=== PATIENT | male | born 1995 | race Caucasian/White ===

== ENCOUNTER 2021-08-24 20:11 | Inpatient (IN) | payer MEDICAID, SELFPAY ==
[2021-08-24 20:14] VITALS: PULSE 116; RESP 18; TEMP 36.7; O2SAT 98; BMI 39.0
--- NOTE | 2021-08-24 20:18 | CTR_ITS ---
PROCEDURE INFORMATION: Exam: CT Head Without Contrast Exam date and time: 08/24/2021 8:18 PM Age: 26 years old Clinical indication: Prior surgery; Surgery date: 1-6 months; Surgery type: Life Skills Consultant shunt; Patient HX: HX of sarcoidosis C/O weakness TECHNIQUE: Imaging protocol: Computed tomography of the head without contrast. Radiation optimization: All CT scans at this facility use at least one of these dose optimization techniques: automated exposure control; mA and/or kV adjustment per patient size (includes targeted exams where dose is matched to clinical indication); or iterative reconstruction. COMPARISON: No relevant prior studies available. RADIATION DOSE METRICS: Total DLP (mGy-cm): 1069.07 FINDINGS: Tubes, catheters and devices: Left frontal DEPUTY COURT shunt catheter tip over the anterior horn left lateral ventricle. 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 Cerebral ventricles: No ventriculomegaly. Paranasal sinuses: Severe left maxillary sinus disease. Mild bilateral ethmoid sinus disease. Mastoid air cells: Visualized mastoid air cells are well aerated. Bones/joints: Lytic bone destruction in the midline anterior frontal sinuses with extension to the superior portion of the nasal bones suggesting possible bony sarcoidosis. Soft tissues: Unremarkable. CT/CT head wo con* [id number] IMPRESSION: 1. Left frontal DEPUTY COURT shunt catheter tip over the anterior horn left lateral ventricle. 2. Severe left maxillary sinus disease. 3. Mild bilateral ethmoid sinus disease. 4. Lytic bone destruction in the midline anterior frontal sinuses with extension to the superior portion of the nasal bones suggesting possible bony sarcoidosis. Radiation Dose CTDIVOL = (mGy): DLP = 1069.07 (mGy-cm)
--- NOTE | 2021-08-24 20:18 | XRR_ITS ---
PROCEDURE INFORMATION: Exam: XR Chest Exam date and time: 08/24/2021 8:18 PM Age: 26 years old Clinical indication: Other: Edema; Additional info: Swelling TECHNIQUE: Imaging protocol: XR of the chest. Views: 1 view. COMPARISON: No relevant prior studies available. FINDINGS: Lungs: Unremarkable. No consolidation. Pleural spaces: Unremarkable. No pleural effusion. No pneumothorax. Heart/Mediastinum: Unremarkable. No cardiomegaly. Bones/joints: Unremarkable. XR/XR chest 1V portable [id number] IMPRESSION: No acute findings. Radiation Dose CTDIVOL = (mGy): DLP = (mGy-cm)
--- NOTE | 2021-08-24 20:19 | ECG_ITS ---
[facility] Test Date: 2021-08-24 Pat Name: Rick York Department: Room: Gender: Male Community Services Coordinator: : 1995 Requested By: Ivone De La Rosa Order Number: [id number] Domonique MD: Toshia Haywood M.D. Measurements Intervals [place] Rate: 111 P: 47 CT: 155 QRS: 57 QRSD: 91 T: 4 QT: 327 QTc: 446 Interpretive Statements SINUS TACHYCARDIA NONSPECIFIC T-WAVE ABNORMALITY ABNORMAL RHYTHM ECG No previous ECG available for comparison Electronically Signed On 08-25-2021 20:00:36 PRODUCT DEVELOPER by Toshia Haywood M.D. [id number]
--- NOTE | 2021-08-24 20:46 | W.ED.WEAKNES ---
HPI - Weakness General: Chief complaint: Weakness Stated complaint: WEAKNESS Time Seen by Provider: 08/24/21 20:14 Source: patient and EMS Mode of arrival: EMS Limitations: no limitations History of Present Illness: HPI Narrative: 26-year-old female who presents here with increased weakness. He has a history of [place] cirrhosis along with hydrocephaly patient was recently admitted to [facility] a month ago and had a SLURRY CONTROL TENDER shunt placed for his hydrocephalus. Per patient he has had increasing weakness since then and swelling in his legs also spoke to patient's grandmother over the phone who is unable to come here due to distance as he came from [place] and she states she does not have a car. She states that since he has been discharged from [facility] she has had increased weakness with very limited mobility and has not been able to walk over the last week and states that her or his mother cannot take care of him any longer. He has had no fever no headache no increased confusion. He does have an abscess to his right upper arm Associated symptoms: Denies chest pain, chills, dysuria, easy bruising, fever(s), nausea or vomiting Review of Systems Const: Denies: fever(s), chills, body aches or change in appetite Eyes: Denies: blurry vision or eye discomfort ENMT: Denies: throat pain or dental pain Card: Denies: chest pain Resp: Denies: dyspnea GI: Denies: abdominal pain, nausea, vomiting or diarrhea : Denies: dysuria Musc: Reports: extremity swelling Skin/Breast: Denies: rash Neuro: Reports: weakness in extremities Psych: Denies: depression Po/Lymph: Denies: easy bruising All/Imm: Denies: urticaria Physical Exam Const: COMMON NORMALS: no acute distress, patient oriented x3 and healthy appearing HENMT: COMMON NORMALS: normocephalic and atraumatic HEAD & SCALP: normocephalic and atraumatic Eye: COMMON NORMALS: Equal, round and reactive pupils present and EOMs intact bilaterally PUPIL: Yes Equal, round and reactive pupils present Neck/C-Spine: COMMON NORMALS: full ROM and supple Chest: COMMONS NORMALS: normal inspection of the chest and normal palpation of entire chest wall Resp: COMMON NORMALS: normal respiratory effort, No retractions, No use of accessory muscles and clear to auscultation bilaterally AUSCULTATION: clear to auscultation bilaterally Cardio: COMMON NORMALS: regular rate, regular rhythm and No murmurs present (Cardio) RATE: regular rate RHYTHM: regular rhythm GI: COMMON NORMALS: Normal to inspection, nondistended, normoactive bowel sounds present, Soft to palpation, non-tender and no masses PALPATION: Yes Soft to palpation Extremity: NARRATIVE EXTREMITY EXAM: 3+ edema in bilateral extremities patient is very weak in bilateral extremities as well. 3 cm abscess to right upper arm Neuro: COMMON NORMALS: patient oriented x3, moves all extremities and no focal motor deficits Psych: COMMON NORMALS: mental status grossly normal, Normal thought process present and cooperative THOUGHT PROCESS: Normal thought process present Skin: COMMON NORMALS: no rashes or lesions noted and no wounds GENERAL SKIN EXAM: no rashes or lesions noted Procedures Abscess I/D Site: upper extremity Side (if applicable): right Local Anesthetic: lidocaine 1% Amount of anesthesia used (mL): 10 Technique: incised with #11 blade Irrigation: No Packing used?: none Course Vital Signs: Vital signs: Vital Signs Temperature 98.1 F 08/24/21 20:14 Pulse Rate 113 H 08/24/21 22:35 Respiratory Rate 16 08/24/21 22:35 Blood Pressure 152/93 08/24/21 22:35 Pulse Oximetry 99 08/24/21 22:35 MDM - Weakness MDM Narrative: Medical decision making narrative: Patient presents here with generalized weakness and inability to walk. I spoke to patient's grandma she states since he is got out of the hospital had surgery she has had difficulty walking and not able to walk over the last 3 days they state that they are not able to take care of him at home anymore and believes patient may need home health or fdc. Mother and grandmother both within [place] and are unable to come here due to not having a car I am unable to get patient to ambulate he does have leg swelling here CT of his head is normal he has no signs of BP shunt malfunction patient's blood work is normal as well. I spoke to the hospitalist will admit at this time for his weakness and unable to walk. Lab Data: Labs: Lab Results 08/24/21 08/24/21 08/24/21 21:07 21:12 21:12 WBC 8.3 10^3/uL 10^3/ uL (4.0-10.0) RBC 5.46 10^6/uL H 10 ^6/uL (4.1-5.3) Hgb 14.5 g/dL g/dL (11.7-16.6) Hct 44.2 % % (42.0-52.0) MCV 81.0 fl fl (80-94) MCH 26.6 pg L pg (28.0-34.0) MCHC 32.8 g/dL g/dL (30.0-36.0) RDW 18.4 % H % (12.1-15.1) Plt Count 95 10^3/cmm L 10^ 3/cmm (130-400) MPV 11.2 fL H fL (7.4-10.4) Neut % (Auto) 73.9 % % Lymph % (Auto) 16.0 % % [place] % (Auto) 8.0 % % Eos % (Auto) 0.4 % % Baso % (Auto) 0.5 % % Neut # (Auto) 6.13 10^3/uL 10^3 /uL (1.8-7.7) Lymph # (Auto) 1.3 10^3/uL 10^3/ uL (0.8-4.8) [place] # (Auto) 0.7 10^3/uL 10^3/ uL (0.2-0.9) Eos # (Auto) 0.0 10^3/uL 10^3/ uL (0.0-0.8) Baso # (Auto) 0.0 10^3/uL 10^3/ uL (0.0-0.1) Nucleated RBC % (a uto) 0 % % Nucleated RBCs # 0.0 /100WBC /100W BC PT 16.10 SECONDS H S ECONDS (12.1-14.9) INR 1.25 H (0.8-1.2) Sodium Potassium Chloride Carbon Dioxide Anion Gap BUN Creatinine GFR Calculation Glucose POC Glucose 229 mg/dL H mg/dL (70-110) Calculated Osmolal ity Calcium Total Bilirubin AST ALT Alkaline Phosphata se NT-Pro-B Natriuret Pep Total Protein Albumin Globulin 08/24/21 21:12 WBC RBC Hgb Hct MCV MCH MCHC RDW Plt Count MPV Neut % (Auto) Lymph % (Auto) [place] % (Auto) Eos % (Auto) Baso % (Auto) Neut # (Auto) Lymph # (Auto) [place]eld # (Auto) Eos # (Auto) Baso # (Auto) Nucleated RBC % (a uto) Nucleated RBCs # PT INR Sodium 140 mmol/L mmol/L (136-145) Potassium 3.1 mmol/L L mmol /L (3.5-5.1) Chloride 100 mmol/L mmol/L (98-107) Carbon Dioxide 27 mmol/L mmol/L (22-29) Anion Gap 16.1 (5-19) BUN 5 mg/dL L mg/dL (6-20) Creatinine 0.5 mg/dL L mg/dL (0.7-1.2) GFR Calculation 201.0 mL/min H mL /min (90-130) Glucose 257 mg/dL H mg/dL (65-115) POC Glucose Calculated Osmolal ity 296 mOsm/kg H mOs m/kg (285-295) Calcium 9.8 mg/dL mg/dL (8.5-10.5) Total Bilirubin 2.3 mg/dL H mg/dL (0.15-1.2) AST 30 U/L U/L (0-40) ALT 176 U/L H U/L (0-41) Alkaline Phosphata se 169 IU/L H IU/L (40-130) NT-Pro-B Natriuret Pep 64 pg/mL pg/mL (0-125) Total Protein 5.7 g/dL L g/dL (6.6-8.7) Albumin 3.8 g/dL g/dL (3.5-5.2) Globulin 1.9 g/dL g/dL (1.3-4.6) Imaging Data^: CT Head: Attestation: I personally reviewed and interpreted this imaging study as follows: Radiologist's impression: ADM Date: 08/24/21 Loc: ER Room/Bed: Attending Dr: Ordering Provider/Ordering MD: Ivone De La Rosa MD Date of Service: 08/24/21 Procedure(s): CT head wo con* [id number] Accession Number(s): [id number] Report Number: [id number] PROCEDURE INFORMATION: Exam: CT Head Without Contrast Exam date and time: 08/24/2021 8:18 PM Age: 26 years old Clinical indication: Prior surgery; Surgery date: 1-6 months; Surgery type: Shank Piece Tacker shunt; Patient HX: HX of sarcoidosis C/O weakness TECHNIQUE: Imaging protocol: Computed tomography of the head without contrast. Radiation optimization: All CT scans at this facility use at least one of these dose optimization techniques: automated exposure control; mA and/or kV adjustment per patient size (includes targeted exams where dose is matched to clinical indication); or iterative reconstruction. COMPARISON: No relevant prior studies available. RADIATION DOSE METRICS: Total DLP (mGy-cm): 1069.07 FINDINGS: Tubes, catheters and devices: Left frontal SLURRY CONTROL TENDER shunt catheter tip over the anterior horn left lateral ventricle. 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 Cerebral ventricles: No ventriculomegaly. Paranasal sinuses: Severe left maxillary sinus disease. Mild bilateral ethmoid sinus disease. Mastoid air cells: Visualized mastoid air cells are well aerated. Bones/joints: Lytic bone destruction in the midline anterior frontal sinuses with extension to the superior portion of the nasal bones suggesting possible bony sarcoidosis. Soft tissues: Unremarkable. CT/CT head wo con* [id number] IMPRESSION: 1. Left frontal SLURRY CONTROL TENDER shunt catheter tip over the anterior horn left lateral ventricle. 2. Severe left maxillary sinus disease. 3. Mild bilateral ethmoid sinus disease. 4. Lytic bone destruction in the midline anterior frontal sinuses with extension to the superior portion of the nasal bones suggesting possible bony sarcoidosis. Radiation Dose CTDIVOL = (mGy): DLP = 1069.07 (mGy-cm) Dictated By: Trae Bergman MD Signed By: Trae Bergman MD Signed Date/Time: 08/24/212203 CXR: Attestation: I personally reviewed and interpreted this imaging study as follows: My impression: no acute abnormality EKG Data^: EKG 1: Attestation: I personally reviewed and interpreted this EKG as follows: EKG interpretation date: 08/24/21 EKG interpretation time: 20:34 Interpretation: sinus tach hr [address] or t wave abnormalities qrs 91 qtc 393 Discharge Plan Discharge Patient Disposition: Admitted As Inpatient Admit Provider: Radha Machuca Clinical Impression: Weakness, Edema of both lower legs, Liver cirrhosis secondary to [place], S/P SLURRY CONTROL TENDER shunt, Abscess Condition: Stable Coding Level of Care Code ED Can Operator for Chg Fwd Exam Comprehensive
[2021-08-24 21:09] LABS: Glucose Point of Care 229 mg/dL (70-110)
[2021-08-24 21:22] VITALS: BP 149/88
[2021-08-24 21:24] LABS: Basophils % 0.5 %; Eosinophils % 0.4 %; Hematocrit 44.2 % (42.0-52.0); Hemoglobin 14.5 g/dL (11.7-16.6); Lymphocytes # 1.3 10^3/uL (0.8-4.8); Mean Corpuscular HGB Conc 32.8 g/dL (30.0-36.0); Mean Corpuscular Hemoglobin 26.6 pg (28.0-34.0); Mean Platelet Volume 11.2 fL (7.4-10.4); Monocytes # 0.7 10^3/uL (0.2-0.9); Neutrophils # 6.13 10^3/uL (1.8-7.7); Neutrophils % 73.9 %; Nucleated Red Blood Cells % 0 %; Platelet Count 95 10^3/cmm (130-400); Red Blood Count 5.46 10^6/uL (4.1-5.3); Red Cell Distribution Width 18.4 % (12.1-15.1); White Blood Count 8.3 10^3/uL (4.0-10.0)
[2021-08-24 21:30] LABS: INR 1.25 (0.8-1.2)
[2021-08-24 21:49] LABS: Alanine Aminotransferase 176 U/L (0-41); Albumin Level 3.8 g/dL (3.5-5.2); Alkaline Phosphatase 169 IU/L (40-130); Anion Gap 16.1 (5-19); Aspartate Amino Transferase 30 U/L (0-40); Blood Urea Nitrogen 5 mg/dL (6-20); Calcium 9.8 mg/dL (8.5-10.5); Carbon Dioxide 27 mmol/L (22-29); Chloride 100 mmol/L (98-107); Globulin 1.9 g/dL (1.3-4.6); Glucose 257 mg/dL (65-115); NT Pro B Type Natriuretic Pept 64 pg/mL (0-125); Osmolality Calculated 296 mOsm/kg (285-295); Potassium 3.1 mmol/L (3.5-5.1); Slide Review Slide Review Perform; Sodium 140 mmol/L (136-145); Total Bilirubin 2.3 mg/dL (0.15-1.2); Total Protein 5.7 g/dL (6.6-8.7)
--- NOTE | 2021-08-24 22:04 | USR_ITS ---
PROCEDURE INFORMATION: Exam: US Duplex Lower Extremity Veins, Bilateral Exam date and time: 08/24/2021 10:04 PM Age: 26 years old Clinical indication: Edema, localized; Lower extremity, bilateral; Additional info: Leg swelling TECHNIQUE: Imaging protocol: Real-time duplex ultrasound of the extremities with 2-D wiggins scale, color Doppler flow and spectral waveform analysis with image documentation. Complete exam focused on the bilateral lower extremity veins. COMPARISON: No relevant prior studies available. FINDINGS: Right deep veins: Unremarkable. The common femoral, femoral, proximal profunda femoral and popliteal veins are patent without thrombus. Normal Doppler waveforms. Normal compressibility and/or augmentation response. Right superficial veins: Saphenofemoral junction is patent without thrombus. Left deep veins: Unremarkable. The common femoral, femoral, proximal profunda femoral and popliteal veins are patent without thrombus. Normal Doppler waveforms. Normal compressibility and/or augmentation response. Left superficial veins: Saphenofemoral junction is patent without thrombus. Soft tissues: Unremarkable. US/CV venous duplex [facility] [id number] IMPRESSION: No evidence of deep vein thrombosis. Radiation Dose CTDIVOL = (mGy): DLP = (mGy-cm)
[2021-08-24 22:12] VITALS: BP 147/89; PULSE 113; RESP 20; O2SAT 97
[2021-08-24 22:35] VITALS: BP 152/93; PULSE 113; RESP 16; O2SAT 99
[2021-08-24] MEDS: FUROsemide 10 mg/mL SDV 4mL 40 MG IVP (22:48)
[2021-08-24] MEDS: lidocaine 1% INJ 20 mL INJECTION (22:50)
[2021-08-24] MEDS: clindamycin 900 MG/50 ML PREMIX 100 MG IV (22:53)
[2021-08-24 23:14] LABS: Ammonia 19 umol/L (16-60)
[2021-08-24 23:30] VITALS: BMI 37.9; BMI 39.0
[2021-08-24 23:46] VITALS: BP 118/94; PULSE 119; RESP 17; O2SAT 100
--- NOTE | 2021-08-25 00:14 | PM.HP ---
Providers/Chief Complaint Admitting Physician: Radha Machuca MD Chief Complaint: WEAKNESS History of Present Illness Rick York is a 26 year old male with PMH sarcoidosis, DM, hydrocephalus for which BRAKE DRUM LATHE OPERATOR shunt was placed at [facility] approximately 2 months ago. Patient is a vague historian and non specific, not very forthcoming regarding details of his admission including why he needed admission ,symptoms at admission and those leading up to his diagnosis of sarcoidosis. He was discharged home approximately one month ago. He has had LE swelling B/L dating back several months, however this has worsened since he returned home to the point where his legs feel too heavy to be able to walk. He was ambulating until a week ago but now states that he is unable to do so because of heaviness. No disturbances in sensation in lower extremities, aware of bowel and bladder function but does not appear to make effort to reposition when urinating. weeping edema+, few scratches and superficial ulcers noted over B/L legs, denies any preceeding injuries. B/L elbows with contusions and abrasions, states he got them when he punched himself being frustrated during a video game. Denies any recent fever, chills, cough, dyspnea, chest pain, palpitations, nausea, vomiting, diarrhea, dysuria. Head CT with patent BRAKE DRUM LATHE OPERATOR shunt. B/L groin and buttocks with intertrigo, patient denies itching, appears to have been unaware. States he does not follow with PCP or divinity teacher Review of Systems General: Reports: 10 or more systems reviewed and unremarkable except in HPI and below Const: Denies: fever(s), chills or body aches Eyes: Denies: change in vision, blurry vision or photophobia ENMT: Reports: hoarseness; Denies: throat pain, enlarged tonsils, odynophagia or nasal congestion Card: Denies: chest pain, palpitations, irregular heart rhythm, edema, swelling of feet/ankles, lightheadedness, pre-syncope, dyspnea on exertion or orthopnea Resp: Denies: dyspnea, productive cough, non-productive cough, wheezing, stridor, pain on inspiration, change in phlegm color, hemoptysis or chest congestion GI: Denies: abdominal pain, nausea, vomiting, hematemesis, coffee ground emesis, dysphagia, heartburn, diarrhea, constipation, GI cramping, change in stool character, hematochezia or melena : Denies: flank pain, dysuria, urinary frequency, urinary urgency, urinary hesitancy or hematuria Musc: Denies: neck pain, back pain, extremity pain, joint swelling, joint warmth or deformity Neuro: Denies: headache(s), numbness in extremities, weakness in extremities, sensory changes, difficulty walking, frequent falls, dizziness, vertigo, behavioral changes, Slurred speech present or seizure-like activity Psych: Denies: anxiety, depression, suicidal ideation or homicidal ideation Endo: Denies: polyuria, polydipsia, tired all the time, cold intolerance or hot flashes Po/Lymph: Denies: easy bruising or easy bleeding Medications/Allergies Home Medications Medication Instructions Recorded Confirmed Last Taken Type ergocalciferol (vitamin D2) 50,000 unit PO DIRECTED 08/24/21 08/24/21 Unknown History [Vitamin D2] famotidine 20 mg PO DAILY 08/24/21 08/24/21 Unknown History metformin 500 mg PO BID 08/24/21 08/24/21 Unknown History miconazole nitrate [Zeasorb AF] 1 applic TOPICAL BID 08/24/21 08/24/21 Unknown History sulfamethoxazole-trimethoprim 1 tab PO DAILY 08/24/21 08/24/21 Unknown History Allergies Allergy/AdvReac Type Severity Reaction Status Date / Time No Known Allergies Allergy Verified 08/24/21 20:30 PFSH Acute PFSH: Medical History (Updated 08/25/21 @ 04:29 by Radha Machuca MD) Liver cirrhosis secondary to GUPTA Surgical History (Updated 08/25/21 @ 04:12 by Radha Machuca MD) S/P BRAKE DRUM LATHE OPERATOR shunt Vitals/I&O/Wt Last Vital Signs Temp 98.1 F 08/24/21 20:14 Pulse 119 H 08/24/21 23:46 Resp 17 08/24/21 23:46 BP 118/94 08/24/21 23:46 Pulse Ox 100 08/24/21 23:46 Weight last 48 hrs Weight 127.006 kg Physical Exam Narrative: EXAM NARRATIVE: General: No acute distress, AO x3, takes time to respond to questions, per grandmother this is baseline mentation HEENT: PERRLA, pupils bilaterally equal and reactive, pallors not present Chest: Normal vesicular breath sounds, no added sounds, equal good air entry bilaterally CVS: S1-S2 regular, no murmurs, no tachycardia, no gallops, no rubs Abdomen: Soft, nontender, no organomegaly, bowel sounds present Neuro: Power 5/5 B/L upper extremities, able to sit up, move side to side independently, able to move all toes B/L, deneis any sensory deficits, unable to lift B/L legs few cm off the bed- cites heaviness Extremities: B/L LE 3+ pitting edema, areas of superficial ulceration and multiple abrasions. B/L LE warm to touch. extensive intertrigo. Data : 08/24/21 21:12 08/24/21 21:12 Other Labs: Laboratory Results WBC 8.3 10^3/uL (4.0-10.0) 08/24/21 21:12 RBC 5.46 10^6/uL (4.1-5.3) H 08/24/21 21:12 Hgb 14.5 g/dL (11.7-16.6) 08/24/21 21:12 Hct 44.2 % (42.0-52.0) 08/24/21 21:12 MCV 81.0 fl (80-94) 08/24/21 21:12 MCH 26.6 pg (28.0-34.0) L 08/24/21 21:12 MCHC 32.8 g/dL (30.0-36.0) 08/24/21 21:12 RDW 18.4 % (12.1-15.1) H 08/24/21 21:12 Plt Count 95 10^3/cmm (130-400) L 08/24/21 21:12 MPV 11.2 fL (7.4-10.4) H 08/24/21 21:12 Neut % (Auto) 73.9 % 08/24/21 21:12 Lymph % (Auto) 16.0 % 08/24/21 21:12 [place] % (Auto) 8.0 % 08/24/21 21:12 Eos % (Auto) 0.4 % 08/24/21 21:12 Baso % (Auto) 0.5 % 08/24/21 21:12 Neut # (Auto) 6.13 10^3/uL (1.8-7.7) 08/24/21 21:12 Lymph # (Auto) 1.3 10^3/uL (0.8-4.8) 08/24/21 21:12 [place] # (Auto) 0.7 10^3/uL (0.2-0.9) 08/24/21 21:12 Eos # (Auto) 0.0 10^3/uL (0.0-0.8) 08/24/21 21:12 Baso # (Auto) 0.0 10^3/uL (0.0-0.1) 08/24/21 21:12 Nucleated RBC % (auto) 0 % 08/24/21 21:12 Nucleated RBCs # 0.0 /100WBC 08/24/21 21:12 PT 16.10 SECONDS (12.1-14.9) H 08/24/21 21:12 INR 1.25 (0.8-1.2) H 08/24/21 21:12 Sodium 140 mmol/L (136-145) 08/24/21 21:12 Potassium 3.1 mmol/L (3.5-5.1) L 08/24/21 21:12 Chloride 100 mmol/L (98-107) 08/24/21 21:12 Carbon Dioxide 27 mmol/L (22-29) 08/24/21 21:12 Anion Gap 16.1 (5-19) 08/24/21 21:12 BUN 5 mg/dL (6-20) L 08/24/21 21:12 Creatinine 0.5 mg/dL (0.7-1.2) L 08/24/21 21:12 GFR Calculation 201.0 mL/min (90-130) H 08/24/21 21:12 Glucose 257 mg/dL (65-115) H 08/24/21 21:12 POC Glucose 229 mg/dL (70-110) H 08/24/21 21:07 Estimat Average Glucose 246 08/24/21 21:12 Hemoglobin A1c 10.2 % (4.0-6.0) H 08/24/21 21:12 Calculated Osmolality 296 mOsm/kg (285-295) H 08/24/21 21:12 Calcium 9.8 mg/dL (8.5-10.5) 08/24/21 21:12 Total Bilirubin 2.3 mg/dL (0.15-1.2) H 08/24/21 21:12 AST 30 U/L (0-40) 08/24/21 21:12 ALT 176 U/L (0-41) H 08/24/21 21:12 Alkaline Phosphatase 169 IU/L (40-130) H 08/24/21 21:12 Ammonia 19 umol/L (16-60) 08/24/21 22:15 NT-Pro-B Natriuret Pep 64 pg/mL (0-125) 08/24/21 21:12 Total Protein 5.7 g/dL (6.6-8.7) L 08/24/21 21:12 Albumin 3.8 g/dL (3.5-5.2) 08/24/21 21:12 Globulin 1.9 g/dL (1.3-4.6) 08/24/21 21:12 Impressions Chest X-Ray 08/24/21 20:18 IMPRESSION: No acute findings. Radiation Dose CTDIVOL = (mGy): DLP = (mGy-cm) Head CT 08/24/21 20:18 IMPRESSION: 1. Left frontal BRAKE DRUM LATHE OPERATOR shunt catheter tip over the anterior horn left lateral ventricle. 2. Severe left maxillary sinus disease. 3. Mild bilateral ethmoid sinus disease. 4. Lytic bone destruction in the midline anterior frontal sinuses with extension to the superior portion of the nasal bones suggesting possible bony sarcoidosis. Radiation Dose CTDIVOL = (mGy): DLP = 1069.07 (mGy-cm) Venous Duplex 08/24/21 22:04 IMPRESSION: No evidence of deep vein thrombosis. 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: Status: Acute (3) Edema of both lower legs: Status: Acute (4) S/P BRAKE DRUM LATHE OPERATOR shunt: Status: Acute (5) Cellulitis: Status: Acute (6) Intertrigo: Status: Acute (7) Diabetes mellitus: Status: Acute Additional A&P Information 26M with multiple comorbidities as above presenting with worsening LE edema, increasing generalized swelling, inability to walk, possible cellulitis # B/L lower extremity edema Etiology unclear at this time possibilities include lymphedema, CHF, liver cirrhosis (chart mentions h/o GUPTA) LE duplex negative for DVT check echocardiogram, RUQ US Hiv, hepatitis screen # possible cellulitis- start empiric zosyn and monitor for improvement. Changes in LE may represent stasis dermatitis however with severe intertrigo and LE skin ulcerations, he is high risk for cellulitis, cannot exclude possibility. Check MRSA screen. check blood cx # H/o sarcoidosis, h/o BRAKE DRUM LATHE OPERATOR shunt- unclear details leading up to diagnosis- request records # Diabetes mellitus: B/L axilla with acanthosis nigricans, suspect DM to be uncontrolled, check Hba1c. Patient reports being on insulin at home however medication list only has metformin listed. 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
[2021-08-25 00:16] VITALS: BP 118/78; PULSE 109; RESP 16; TEMP 36.4; O2SAT 98
[2021-08-25 02:40] LABS: Estmated Average Glucose 246; Hemoglobin A1C 10.2 % (4.0-6.0)
[2021-08-25] MEDS: piperacillin-tazobactam 3.375 GM in sodium chloride 0.9% (plus) 50 ML IV ×3 (03:18→18:01)
[2021-08-25 04:00] VITALS: BP 100/54; PULSE 113; RESP 16; TEMP 37.3; O2SAT 95
[2021-08-25] MEDS: enoxaparin 40 mg/0.4 mL Syringe SUBCUT (05:36)
[2021-08-25] MEDS: potassium chloride ER 20 mEq Tablet 40 MEQ PO (05:36)
[2021-08-25 06:20] LABS: Glucose Point of Care 245 mg/dL (70-110)
[2021-08-25 06:48] LABS: Alanine Aminotransferase 133 U/L (0-41); Albumin Level 3.1 g/dL (3.5-5.2); Alkaline Phosphatase 174 IU/L (40-130); Aspartate Amino Transferase 23 U/L (0-40); Blood Urea Nitrogen 5 mg/dL (6-20); Carbon Dioxide 26 mmol/L (22-29); Chloride 104 mmol/L (98-107); Globulin 2.3 g/dL (1.3-4.6); Glucose 244 mg/dL (65-115); Osmolality Calculated 301 mOsm/kg (285-295); Sodium 143 mmol/L (136-145); Thyroid Stimulating Hormone 1.46 uIU/mL (0.27-4.20); Total Bilirubin 1.8 mg/dL (0.15-1.2); Total Protein 5.4 g/dL (6.6-8.7)
[2021-08-25 08:00] VITALS: BP 120/75; PULSE 106; RESP 16; TEMP 37.1; O2SAT 96
[2021-08-25 08:37] LABS: HIV 1 & 2 Antibody Non-Reactive (Non-Reactiv); HIV 1 & 2 Antigen Non-Reactive (Non-Reactiv)
[2021-08-25 08:48] LABS: Hepatitis A Antibody IgM Non-Reactive (Nonreactive); Hepatitis B Core AB, Total Non-Reactive (Nonreactive); Hepatitis B Surface AB 3.5 (11.5-1000); Hepatitis B Surface Antigen Non-Reactive (Nonreactive); Hepatitis C Virus Antibody Non-Reactive (Nonreactive)
[2021-08-25] MEDS: pantoprazole DR 40 mg Tablet PO (09:10)
[2021-08-25] MEDS: fluconazole 100 mg Tablet PO (09:10)
[2021-08-25] MEDS: insulin lispro 100 unit/1 mL SUBCUT ×4 (09:10→21:48)
--- NOTE | 2021-08-25 09:58 | PC.CHAP ---
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 pantograph machine operator visit [] Patient/Family/Request visit [] Outpatient visit [] Follow-up visit [] Physician referral [] Code/Alert [x] Routine visit [] Staff referral [] Actively dying [] Patient sleeping [] Family support [] [] Out of room [] Palliative care [] [x] Receiving care in room [] Pre-surgical visit [] Trauma [] Long length of stay [] ICU visit [] Other: Relational/Emotional Strength [] Patient feels connected with others/family/visitors/staff [] Distress [] Loneliness/isolation [] Abandonment Spirituality of Patient [] Person of Danica [] Attends Catholic of their Danica [] Believes in Prayer [] Reads Bible or Lutheran materials [] There are Spiritual issues to be addressed Basket Hand Braider Interventions [] Prayer [] Active listening [] Non-anxious presence [] Spiritual/emotional support [] Crisis/trauma care [] Spiritual counseling [] Bereavement support [] Provided bereavement packet [] Provided Bible/devotional materials [] Provided toy/stuffed animal, coloring book to patient or family member [] Provided Communion [] Anointing/[place] [] Salvation [] Completed spiritual assessment [] Other: Impact on Illness or Injury [] Angry [] Fearful [] Anxious [] Often cries [] Exhaustion [] Unable to work [] Unable to attend faith [] Unable to walk/stand [] Unable to read [] Unable to drive [] Unable to eat/drink [] Unable to sleep [] Unable to be with family [] Patient intubated [] Other: Summary Time spent with patient
--- NOTE | 2021-08-25 10:43 | PC.NURSE ---
updated patient's mother
[2021-08-25] MEDS: clotrimazole 1% cream 30 gm 1 APPLIC TOPICAL ×2 (11:31→18:06)
--- NOTE | 2021-08-25 11:35 | PC.NURSE ---
vd call from Chel Gray, she stated she is with the division of family services and was checking on patient. she said she wants to know if someone will get him a medicaid application. I told her I would talk to healthcare social worker. She said she will come see patient on Wednesday.
[2021-08-25 11:45] LABS: Glucose Point of Care 384 mg/dL (70-110)
--- NOTE | 2021-08-25 11:59 | PC.NURSE ---
Notified GLORIA Russell that Chel Gray with the Division of Family Services called and said patient needs a medication application. she said based on his income and other things he should qualify. Can you help with this?
[2021-08-25 12:00] VITALS: BP 135/77; PULSE 103; RESP 16; TEMP 36.6; O2SAT 98
[2021-08-25 14:42] LABS: Add Urine Microscopic? NO; Charge for UA Resulting for Rev
[2021-08-25 15:07] LABS: Bilirubin Urine Neg (Negative); Blood Urine Neg (Negative); Glucose Urine UA 4+ (Normal); Ketones Urine 1+ (Negative); Leukocyte Esterase Urine Negative (Negative); Nitrate Urine Negative (Negative); Protein Urine Neg (Negative); Specific Gravity, Urine 1.005 (1.005-1.030); Urine Appearance Clear (CLEAR); Urine Color Yellow (Yellow); Urobilinogen Urine Norm (Negative); pH Urine 7 (5-7)
[2021-08-25 15:14] LABS: Amphetamines Screen Urine Negative (Negative); Barbiturates Screen Urine Negative (Negative); Benzodiazepines Screen Urine Negative (Negative); Cocaine Screen Urine Negative (Negative); Opiate Screen Urine Negative (Negative); PCP Screen Urine Negative (Negative); THC Screen Urine Negative (Negative)
[2021-08-25 16:00] VITALS: BP 133/69; PULSE 102; RESP 16; TEMP 36.8; O2SAT 99
[2021-08-25 17:54] LABS: Glucose Point of Care 253 mg/dL (70-110)
[2021-08-25 20:00] VITALS: BP 135/83; PULSE 102; RESP 17; TEMP 36.8; O2SAT 96
--- NOTE | 2021-08-25 21:21 | P.PN_ITS ---
Subjective Subjective: Interval history: He is doing slightly better. He is now able to barely lift his legs off the bed, swelling slightly improved after dose of diuretic in ER. He does not remember being told that sarcoidosis was affecting his heart at [facility]. He is not remember how long he has had some excoriations on his left lower leg, ulceration on his right calf with noted mildly necrotic base. Vitals/I&O/Wt Last Vital Signs Temp 98.2 F 08/25/21 20:00 Pulse 102 H 08/25/21 20:00 Resp 17 08/25/21 20:00 BP 135/83 08/25/21 20:00 Pulse Ox 96 08/25/21 20:00 08/25/21 08/25/21 08/25/21 06:59 14:59 22:59 Intake Total 50 / 50 1180 / 1180 240 / 1420 Output Total 1800 / 1800 Balance -1750 / -1750 1180 / 1180 240 / 1420 Weight last 48 hrs Weight 127.006 kg Weight 123.377 kg Weight 127.006 kg Physical Exam Const: COMMON NORMALS: no acute distress and patient oriented x3 GENERAL APPEARANCE: cooperative NUTRITIONAL APPEARANCE: obese ORIENTATION/CONSCIOUSNESS: Yes awake HENMT: COMMON NORMALS: oropharynx normal Neck/C-Spine: COMMON NORMALS: no JVD Resp: COMMON NORMALS: normal respiratory effort and clear to auscultation bilaterally AUSCULTATION: clear to auscultation bilaterally Cardio: COMMON NORMALS: no JVD, regular rhythm, S1 normal heart sound present, S2 normal heart sound present and No murmurs present (Cardio) RHYTHM: regular rhythm HEART SOUNDS: S1 normal heart sound present and S2 normal heart sound present GI: COMMON NORMALS: Normal to inspection, nondistended, normoactive bowel sounds present, Soft to palpation and non-tender PALPATION: Yes Soft to pal pation Extremity: COMMON NORMALS: no joint enlargement GENERAL: Yes edema (3+ BL LE, ) Neuro: COMMON NORMALS: patient oriented x3 and moves all extremities Skin: GENERAL SKIN EXAM: erythema (diffuse faint erythema BL LE) LESIONS: other (Excor w eschar above R ankle. Ulceration with small necr eschar L calf.) Data : 08/24/21 21:12 08/25/21 05:33 Micro: Microbiology 08/25/21 07:41 Blood Culture - Preliminary Blood SPECIMEN COLLECTED A&P Assessment and plan (1) Weakness: Appears to respond well to dose of diuretic I will repeat Lasix today. Follow-up on requested studies including TTE, with ultrasound. Follow-up on requested medical record documentation from [facility]. Therapy assessment, case management consultation. 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 Fluid overload. Possible congestive heart failure with myocardial involvement secondary to sarcoidosis. Follow-up TTE. Follow-up [facility] records. No DVT. Status: Acute (4) S/P PAIN MANAGEMENT NURSE PRACTITIONER shunt: Status: Acute (5) Cellulitis: Continue treatment with Zosyn for possible cellulitis. Status: Acute (6) Intertrigo: Clotrimazole. Status: Acute (7) Diabetes mellitus: Status: Acute Additional A&P Information 26M with multiple comorbidities as above presenting with worsening LE edema, increasing generalized swelling, inability to walk, possible cellulitis H/o sarcoidosis, h/o PAIN MANAGEMENT NURSE PRACTITIONER shunt- unclear details leading up to diagnosis- request records Obesity Attestations Medical Necessity Statement*: Continue admission for assessment management of generalized weakness, in setting of sarcoidosis, fluid overload, cellulitis and gentleman who is unable to get up or get around, with obesity, family unable to take care for him. 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
[2021-08-25 21:30] LABS: Glucose Point of Care 305 mg/dL (70-110)
[2021-08-25] MEDS: FUROsemide 10 mg/mL SDV 4mL 40 MG IVP (21:48)
[2021-08-26] VITALS (7 sets, daily range): BP systolic 101–136; BP diastolic 71–83; PULSE 95–113; RESP 14–19; TEMP 36.4–36.9; O2SAT 96–98
[2021-08-26] MEDS: piperacillin-tazobactam 3.375 GM in sodium chloride 0.9% (plus) 50 ML IV ×3 (03:43→17:38)
--- NOTE | 2021-08-26 05:22 | PC.NURSE ---
Completely soaked the bed from his shoulders to the foot of the mattress.
--- NOTE | 2021-08-26 06:00 | US_ITS ---
WS: [id number] RIGHT UPPER QUADRANT ULTRASOUND HISTORY: evaluate for liver cirrhosis COMPARISON: None available. Liver: 14.8 cm in length. Small liver with very coarse echotexture and increased density throughout t he liver. Surface of the liver is irregular. No mass identified or bile duct dilatation although limi pierce evaluation due to body habitus. Gallbladder: Not well visualized. CBD: 0.5 cm Pancreas: Not visualized. Right kidney: 12.4 cm in length. Normal size and echogenicity. No hydronephrosis or mass. Aorta and IVC: Limited visualization. No ascites. US/US liver 13003 IMPRESSION: 1. Technically very difficult and limited evaluation of the RIGHT upper quadra nt. 2. There are changes within the liver that are consistent with cirrhosis. No b ile duct dilatation or mass identified. Limited evaluation. 3. Nonvisualization of the gallbladder.
--- NOTE | 2021-08-26 06:00 | USCV_ITS ---
Rick York Age: 26 Gender: M : 1995 Exam Date: 08/26/2021 06:37 Ordering Phys: Radha Machuca MD Technologist: ERIC [place]am [place] [facility] [place]ication: WORSENING LOWER EXTREMITY EDEMA BP: 100 / 54 HR: 92 Rhythm: Sinus Technical Quality: Adequate MEASUREMENTS (Male / Female) Normal Values 2D ECHO LV Diastolic Diameter PLAX 4.2 cm 4.2 - 5.9 / 3.9 - 5.3 cm LV Systolic Diameter PLAX 2.8 cm IVS Diastolic Thickness 1.3 cm 0.6 - 1.0 / 0.6 - 0.9 cm IVS Systolic Thickness 1.3 cm LVPW Diastolic Thickness 1.6 cm 0.6 - 1.0 / 0.6 - 0.9 cm LVPW Systolic Thickness 1.9 cm RV Chamber Size 2.9 cm LVOT Diameter 2.0 cm LV Ejection Fraction 2D Teich 63.3 % LV Ejection Fraction MOD 2C 61.5 % LV Ejection Fraction 2C AL 66.3 % LA Diameter 3.2 cm LA Width 3.0 cm LA Height 4.0 cm RA Width 3.0 cm RA Height 3.6 cm Aorta at Sinotubular Diameter 2.3 cm M-MODE Aortic Annulus Diameter 2.9 cm LA Ao Ratio MM 1.1 MV E Point Septal Separation 0.4 cm DOPPLER AV Peak Velocity 125.0 cm/s LVOT Peak Velocity 89.0 cm/s AV Area Cont Eq vti 2.3 cm squared AV Area Cont Eq pk 2.3 cm squared MV Area PHT 5.0 cm squared Mitral E to A Ratio 1.6 MV E' Velocity 66.0 cm/s TR Peak Velocity 288.0 cm/s TR Peak Gradient 33.2 mmHg TV Peak E Velocity 56.0 cm/s Right Atrial Pressure 3.0 mmHg Pulmonary Artery Systolic Pressu 36.2 mmHg PV Peak Velocity 127.0 cm/s RV Acceleration Time 0.1 s RV Ejection Time 0.2 s RV AcT/ET 0.4 FINDINGS Left Ventricle Normal left ventricular size. LV systolic function is normal with EF of 60-65%. No regional wall motion abnormalities. Normal diastolic filling pattern. Right Ventricle The right ventricle is normal in size and function. Right Atrium The right atrium is normal in size. Left Atrium The left atrium is normal in size. Mitral Valve Structurally normal mitral valve without significant stenosis or prolapse. There is no mitral regurgitation. Aortic Valve Structurally normal aortic valve without significant sclerosis or stenosis. There is no aortic regurgitation. Tricuspid Valve Structurally normal tricuspid valve without significant stenosis or regurgitation. Insufficient TR jet to calculate RVSP Pulmonic Valve Structurally normal pulmonic valve without significant stenosis. There is no pulmonic regurgitation. Pericardium Normal pericardium without effusion. Aorta Normal ascending aorta dimension. CONCLUSIONS LV systolic function is normal with EF of 60-65% Diastolic function is normal No significant valvular heart disease is noted No comparison studies are available Sandro Foote MD (Electronically Signed) Final Date: 26 August 2021 12:33 S
[2021-08-26] MEDS: enoxaparin 40 mg/0.4 mL Syringe SUBCUT (06:19)
[2021-08-26 06:46] LABS: Glucose Point of Care 239 mg/dL (70-110)
--- NOTE | 2021-08-26 07:47 | PC.NURSE ---
Patient was given a dose of lasix during shift, Patient urinates a large amount with every void and over fills urinal, spilling urine on bed and into floor. Was unable to keep an accurate record of amount voided due to this. Patient had total linens changed 3 times during shift due to this. Patient does use call light to let staff know when he had urinated and the bed was soiled and/or to empty urinal.
[2021-08-26] MEDS: pantoprazole DR 40 mg Tablet PO (07:57)
[2021-08-26] MEDS: fluconazole 100 mg Tablet PO (07:57)
[2021-08-26] MEDS: insulin lispro 100 unit/1 mL SUBCUT ×4 (07:57→21:53)
[2021-08-26] MEDS: clotrimazole 1% cream 30 gm 1 APPLIC TOPICAL ×2 (08:26→17:35)
[2021-08-26 08:56] LABS: Basophils % 0.6 %; Eosinophils % 0.4 %; Hemoglobin 11.9 g/dL (11.7-16.6); Lymphocytes # 1.1 10^3/uL (0.8-4.8); Mean Corpuscular HGB Conc 31.3 g/dL (30.0-36.0); Mean Corpuscular Hemoglobin 26.6 pg (28.0-34.0); Mean Corpuscular Volume 84.8 fl (80-94); Mean Platelet Volume 11.1 fL (7.4-10.4); Monocytes # 0.6 10^3/uL (0.2-0.9); Monocytes % 11.8 %; Neutrophils # 3.03 10^3/uL (1.8-7.7); Nucleated Red Blood Cells % 0 %; Platelet Count 61 10^3/cmm (130-400); Red Blood Count 4.48 10^6/uL (4.1-5.3); White Blood Count 4.8 10^3/uL (4.0-10.0)
[2021-08-26 09:19] LABS: Alanine Aminotransferase 90 U/L (0-41); Albumin Level 2.5 g/dL (3.5-5.2); Alkaline Phosphatase 141 IU/L (40-130); Aspartate Amino Transferase 19 U/L (0-40); Blood Urea Nitrogen 6 mg/dL (6-20); Calcium 7.9 mg/dL (8.5-10.5); Carbon Dioxide 26 mmol/L (22-29); Chloride 105 mmol/L (98-107); Globulin 2.6 g/dL (1.3-4.6); Glomerular Filtration Rate 362.4 mL/min (90-130); Glucose 227 mg/dL (65-115); Osmolality Calculated 299 mOsm/kg (285-295); Sodium 142 mmol/L (136-145); Total Bilirubin 1.8 mg/dL (0.15-1.2); Total Protein 5.1 g/dL (6.6-8.7)
[2021-08-26 09:20] LABS: Anion Gap 14.7 (5-19); Potassium 3.7 mmol/L (3.5-5.1)
[2021-08-26 12:23] LABS: Glucose Point of Care 327 mg/dL (70-110)
--- NOTE | 2021-08-26 15:54 | P.PN_ITS ---
Subjective Subjective: Interval history: Sitting up in chair. Reports he is comfortable. Took quite a bit of assistance of 2 people to get him up into the chair. Bruising on his legs reports sustained at home after when he fell. Vitals/I&O/Wt Last Vital Signs Temp 98.4 F 08/26/21 12:00 Pulse 113 H 08/26/21 12:00 Resp 16 08/26/21 12:00 BP 115/75 08/26/21 12:00 Pulse Ox 97 08/26/21 12:00 08/26/21 08/26/21 08/26/21 06:59 14:59 22:59 Intake Total 50 / 50 Output Total 1500 / 1500 Balance -1500 / 90 50 / 50 Weight last 48 hrs Weight 127.006 kg Weight 123.377 kg Weight 127.006 kg Physical Exam Const: COMMON NORMALS: no acute distress and patient oriented x3 GENERAL APPEARANCE: cooperative NUTRITIONAL APPEARANCE: obese ORIENTA TION/CONSCIOUSNESS: Yes awake HENMT: COMMON NORMALS: oropharynx normal Neck/C-Spine: COMMON NORMALS: no JVD Resp: COMMON NORMALS: normal respiratory effort and clear to auscultation bilaterally AUSCULTATION: clear to auscultation bilaterally Cardio: COMMON NORMALS: no JVD, regular rhythm, S1 normal heart sound present, S2 normal heart sound present and No murmurs present (Cardio) RHYTHM: regular rhythm HEART SOUNDS: S1 normal heart sound present and S2 normal heart sound present GI: COMMON NORMALS: Normal to inspection, nondistended, normoactive bowel sounds present, Soft to palpation and non-tender PALPATION: Yes Soft to palpation Extremity: COMMON NORMALS: no joint enlargement GENERAL: Yes edema (3+ BL LE, ) Neuro: COMMON NORMALS: patient oriented x3 and moves all extremities Skin: GENERAL SKIN EXAM: ecchymosis and erythema (diffuse faint erythema BL LE) LESIONS: other (Excor w eschar above R ankle. Ulceration with small necr eschar L calf.) Data : 08/26/21 08:50 08/26/21 08:50 Micro: Microbiology 08/25/21 07:41 Blood Culture - Preliminary Blood NEGATIVE TO DATE A&P Assessment and plan (1) Weakness: Appears to respond well to dose of diuretic I will repeat Lasix today. Follow-up on requested studies including TTE, and liver ultrasound. Follow-up on requested medical record documentation from [facility]. Therapy assessment, case management consultation. It appears he is not taking any of his medications since Wednesday, including prednisone taper for which he was supposed to be on till December. Restart prednisone. Status: Acute (2) Thrombocytopenia: Requested hemolysis studies. However, currently also got documentation from [facility]. Reported persistent thrombocytopenia during admission at [place] secondary to cirrhosis. Required multiple platelet transfusions. Monitor platelet levels. 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 Status: Acute (4) Edema of both lower legs: Additional diuresis. Fluid overload. Possible congestive heart failure with myocardial involvement secondary to sarcoidosis. Follow-up TTE. Follow-up [facility] records. No DVT. Status: Acute (5) S/P NURSING TECH shunt: He had not followed up with his neurosurgeon Dr. Au. Will need follow-up. Status: Acute (6) Cellulitis: Continue treatment with Zosyn for possible cellulitis. Status: Acute (7) Intertrigo: Clotrimazole. Status: Acute (8) Diabetes mellitus: He was referred for follow-up with endocrinology for diabetes and due to panhypopituitarism. Status: Acute (9) Sarcoidosis: Was supposed to be on prednisone taper, most recently called into the [facility] pharmacy from [facility]. Prednisone 10 mg 5.5 tab x 10 days 5 tab x28 days 4.5 tab x28 days 4 tabs x28 days He also had methotrexate 2.5 mg, 4 tab weekly called him, alongside folic acid 1 mg daily to start after insurance has come through and needed laboratory testing had been confirmed. He had not followed up with rheumatology and ophthalmology which were recommended by [facility]. Dr[facility], [facility] Left middle finger fracture, status post biopsy: He followed up with orthope dics, his fracture was reported have healed well, mother reports they were told no malignancy identified. Status: Acute (10) Declining functional status: We had about a 30-minute conversation together with his grandmother and mother during separate phone calls. His mother had recently lost his cell phone and not can only access to phone through the grandmother. They have had difficult time caring for him recently. He had run out of his medications on Wednesday, they could not pick up and delivery driver the refills that were called into the pharmacy due to lack of insurance and money. They were not able to follow-up with it appears any of the specialist apart from a orthopedics after the discharge. Here he is required significant assistance to get up to the chair. Mother says he got discouraged. Encouraged him today to participate with therapy. We are restarting his medications as well. Case management is looking into his insurance application. Disposition planning. Status: Acute Additional A&P Information 26M with multiple comorbidities as above presenting with worsening LE edema, increasing generalized swelling, inability to walk, possible cellulitis H/o sarcoidosis, h/o NURSING TECH shunt- unclear details leading up to diagnosis- request records Obesity He was referred to bakeshop cleaner due to constellation of medical problems, although has not followed up. Attestations Medical Necessity Statement*: Continue admission for assessment management of generalized weakness, lower extremity edema, cellulitis, in the young gentleman with sarcoidosis, underlying liver cirrhosis. Functional decline. With inadequate social support. 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
[2021-08-26] MEDS: FUROsemide 10 mg/mL SDV 4mL 40 MG IVP (16:45)
[2021-08-26 17:20] LABS: Glucose Point of Care 300 mg/dL (70-110)
[2021-08-26] MEDS: predniSONE 10 mg Tablet 55 MG PO (17:36)
[2021-08-26 17:54] LABS: Hematocrit 39.4 % (42.0-52.0); Retic Production Index 2.17; Reticulocyte % 2.2 % (0.5-2.0)
[2021-08-26 18:41] LABS: LAB Peripheral Smear Sent for Review
[2021-08-26 20:48] LABS: Lactate Dehydrogenase 389 U/L (135-225)
[2021-08-26 21:16] LABS: Glucose Point of Care 356 mg/dL (70-110)
[2021-08-27] MEDS: piperacillin-tazobactam 3.375 GM in sodium chloride 0.9% (plus) 50 ML IV ×3 (01:30→17:30)
[2021-08-27 04:00] VITALS: BP 116/68; PULSE 82; RESP 20; TEMP 36.7; O2SAT 97
[2021-08-27 05:21] LABS: Basophils % 1.2 %; Hematocrit 40.6 % (42.0-52.0); Hemoglobin 11.3 g/dL (11.7-16.6); Lymphocytes # 0.7 10^3/uL (0.8-4.8); Mean Corpuscular HGB Conc 27.8 g/dL (30.0-36.0); Mean Corpuscular Volume 93.5 fl (80-94); Mean Platelet Volume 11.4 fL (7.4-10.4); Monocytes # 0.3 10^3/uL (0.2-0.9); Monocytes % 9.9 %; Neutrophils # 2.19 10^3/uL (1.8-7.7); Neutrophils % 65.5 %; Nucleated Red Blood Cells % 0 %; Platelet Count 53 10^3/cmm (130-400); Red Blood Count 4.34 10^6/uL (4.1-5.3); Red Cell Distribution Width 17.9 % (12.1-15.1); White Blood Count 3.3 10^3/uL (4.0-10.0)
[2021-08-27] MEDS: enoxaparin 40 mg/0.4 mL Syringe SUBCUT (05:39)
[2021-08-27 05:55] LABS: Albumin Level 2.3 g/dL (3.5-5.2); Alkaline Phosphatase 155 IU/L (40-130); Blood Urea Nitrogen 7 mg/dL (6-20); Calcium 7.9 mg/dL (8.5-10.5); Carbon Dioxide 25 mmol/L (22-29); Chloride 104 mmol/L (98-107); Globulin 2.9 g/dL (1.3-4.6); Glucose 298 mg/dL (65-115); Osmolality Calculated 299 mOsm/kg (285-295); Sodium 140 mmol/L (136-145); Total Bilirubin 0.8 mg/dL (0.15-1.2); Total Protein 5.2 g/dL (6.6-8.7)
[2021-08-27 05:57] LABS: Anion Gap 14.8 (5-19); Potassium 3.8 mmol/L (3.5-5.1)
[2021-08-27 05:58] LABS: Alanine Aminotransferase 74 U/L (0-41); Aspartate Amino Transferase 31 U/L (0-40)
[2021-08-27 06:45] LABS: Glucose Point of Care 284 mg/dL (70-110)
[2021-08-27 08:00] VITALS: BP 114/66; PULSE 90; RESP 18; TEMP 36.6; O2SAT 97
[2021-08-27] MEDS: insulin lispro 100 unit/1 mL SUBCUT ×4 (08:56→21:15)
[2021-08-27] MEDS: sulfamethoxazole-trimeth DS 160-800 mg Tablet 1 TAB PO (08:56)
[2021-08-27] MEDS: famotidine 20 mg Tablet PO (08:56)
[2021-08-27] MEDS: fluconazole 100 mg Tablet PO (08:56)
[2021-08-27] MEDS: predniSONE 10 mg Tablet 55 MG PO (08:57)
[2021-08-27] MEDS: pantoprazole DR 40 mg Tablet PO (08:57)
[2021-08-27] MEDS: FUROsemide 10 mg/mL SDV 4mL 40 MG IVP (08:58)
[2021-08-27] MEDS: clotrimazole 1% cream 30 gm 1 APPLIC TOPICAL ×2 (09:04→17:24)
[2021-08-27 11:27] LABS: Glucose Point of Care 385 mg/dL (70-110)
[2021-08-27 11:40] VITALS: BP 129/74; PULSE 91; RESP 16; TEMP 36.9; O2SAT 98
--- NOTE | 2021-08-27 12:24 | P.PN_ITS ---
Subjective Subjective: Interval history: Today he is getting stronger. He requires less assistance to try to get up to the chair. Erythema of the legs is slightly better. Discussed with him worsening cell counts noted today. Worsening, cytopenia. Bruising on lower extremities noted, but does not appear worse than before. Discussed with him discontinuation of Lovenox for now. When asked if he has any questions, he asked me about pancreas transplantation. I am not sure whether they had a discussion regarding liver and pancreas transplant with his GI specialist, seems perhaps, as he seems to agree, discussed with him he will need to discuss with a specialist once he is able to follow-up with them. Vitals/I&O/Wt Last Vital Signs Temp 97.8 F 08/27/21 08:00 Pulse 90 08/27/21 08:00 Resp 18 08/27/21 08:00 BP 114/66 08/27/21 08:00 Pulse Ox 97 08/27/21 08:00 08/26/21 08/27/21 08/27/21 22:59 06:59 14:59 Intake Total 1300 / 1590 1290 / 2880 360 / 360 Output Total 3850 / 3850 800 / 4650 1600 / 1600 Balance -2550 / -2260 490 / -1770 -1240 / -1240 Weight last 48 hrs Weight 117.662 kg Physical Exam Const: COMMON NORMALS: no acute distress and patient oriented x3 GENERAL APPEARANCE: cooperative NUTRITIONAL APPEARANCE: obese ORIENTATION/CONSCIOUSNESS: Yes awake HENMT: COMMON NORMALS: oropharynx normal Neck/C-Spine: COMMON NORMALS: no JVD Resp: COMMON NORMALS: normal respiratory effort and clear to auscultation bilaterally AUSCULTATION: clear to auscultation bilaterally Cardio: COMMON NORMALS: no JVD, regular rhythm, S1 normal heart sound present, S2 normal heart sound present and No murmurs present (Cardio) RHYTHM: regular rhythm HEART SOUNDS: S1 normal heart sound present and S2 normal heart sound present GI: COMMON NORMALS: Normal to inspection, nondistended, normoactive bowel sounds present, Soft to palpation and non-tender PALPATION: Yes Soft to palpation Extremity: COMMON NORMALS: no joint enlargement GENERAL: Yes edema (3+ BL LE, ) Neuro: COMMON NORMALS: patient oriented x3 and moves all extremities Skin: GENERAL SKIN EXAM: ecchymosis and erythema (Improving diffuse erythema BL LE. Persistent red discol some areas, ecchym) LESIONS: other (Excor w eschar above R ankle. Ulceration with small necr eschar L calf.) Data : 08/27/21 04:20 08/27/21 04:20 Micro: Microbiology 08/25/21 07:41 Blood Culture - Preliminary Blood NEGATIVE TO DATE A&P Assessment and plan (1) Weakness: Appears to be gradually improving. Continue diuresis. Resumed on prednisone. Continue. Bactrim. Continue treatment of cellulitis. Continue mobilization with PT, OT. Disposition planning. TTE with normal ejection fraction, normal diastolic function. Liver cirrhosis noted on right upper quadrant ultrasound. Status: Acute (2) Thrombocytopenia: Hold Lovenox. Lab studies not suggestive of active hemolysis. At [facility] reported persistent/recurrent thrombocytopenia during admission secondary to cirrhosis. Required multiple platelet transfusions. Monitor platelet levels. 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 Status: Acute (4) Edema of both lower legs: Additional diuresis. Fluid overload. Possible congestive heart failure with myocardial involvement secondary to sarcoidosis. Follow-up TTE. Follow-up [facility] records. No DVT. Status: Acute (5) S/P EMPLOYMENT DIRECTOR shunt: He had not followed up with his neurosurgeon Dr. uA. Will need follow-up. Status: Acute (6) Cellulitis: Continue treatment with Zosyn for possible cellulitis. Status: Acute (7) Intertrigo: Clotrimazole. Status: Acute (8) Diabetes mellitus: He was referred for follow-up with endocrinology for diabetes and due to panhypopituitarism. Status: Acute (9) Sarcoidosis: Resumed on prednisone. Continue. Was supposed to be on prednisone taper, most recently called into the [place] pharmacy from [facility]. Prednisone 10 mg 5.5 tab x 10 days 5 tab x28 days 4.5 tab x28 days 4 tabs x28 days He also had methotrexate 2.5 mg, 4 tab weekly called him, alongside folic acid 1 mg daily to start after insurance has come through and needed laboratory testing had been confirmed. He had not followed up with rheumatology and ophthalmology which were recommended by [facility]. Dr. Harper, [facility] rheumatology Left middle finger fracture, status post biopsy: He followed up with orthopedic s, his fracture was reported have healed well, mother reports they were told no malignancy identified. Status: Acute (10) Declining functional status: We had about a 30-minute conversation together with his grandmother and mother during separate phone calls. His mother had recently lost his cell phone and not can only access to phone through the grandmother. They have had difficult time caring for him recently. He had run out of his medications on Wednesday, they could not car pick up driver the refills that were called into the pharmacy due to lack of insurance and money. They were not able to follow-up with it appears any of the specialist apart from a orthopedics after the discharge. Here he is required significant assistance to get up to the chair. Mother says he got discouraged. Encouraged him today to participate with therapy. We are restarting his medications as well. Case management is looking into his insurance application. Disposition planning. Status: Acute Additional A&P Information 26M with multiple comorbidities as above presenting with worsening LE edema, increasing generalized swelling, inability to walk, possible cellulitis H/o sarcoidosis, h/o EMPLOYMENT DIRECTOR shunt- unclear details leading up to diagnosis- request records Obesity He was referred to head of training and development due to constellation of medical problems, although has not followed up. Discussed with him regarding documentation from [facility], recommended medications, as well as recommended follow-up. He states he recalls all regarding the recommendations, he intends to seek follow-up. Attestations Medical Necessity Statement*: Continue admission for management of fluid overload, lower extremity edema, cellulitis, reassess worsening throm bocytopenia, with generalized weakness, in a gentleman who has been unable to take his medications at home, with weak social support, continue mobilization, disposition planning and arrangements. 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
[2021-08-27 16:00] VITALS: BP 130/79; PULSE 66; RESP 17; TEMP 36.8; O2SAT 98
[2021-08-27 16:58] LABS: Glucose Point of Care 402 mg/dL (70-110)
[2021-08-27 20:00] VITALS: BP 141/87; PULSE 98; RESP 17; TEMP 36.7; O2SAT 100
[2021-08-27 21:08] LABS: Glucose Point of Care 399 mg/dL (70-110)
[2021-08-27 23:12] VITALS: BP 143/86; PULSE 73; RESP 18; TEMP 36.5; O2SAT 100
[2021-08-28] MEDS: piperacillin-tazobactam 3.375 GM in sodium chloride 0.9% (plus) 50 ML IV ×3 (01:34→18:08)
[2021-08-28 04:27] VITALS: BP 147/89; PULSE 82; RESP 17; TEMP 36.9; O2SAT 100
[2021-08-28 06:00] LABS: Basophils % 0.6 %; Eosinophils % 0.2 %; Hematocrit 40.1 % (42.0-52.0); Hemoglobin 12.3 g/dL (11.7-16.6); Lymphocytes # 1.2 10^3/uL (0.8-4.8); Lymphocytes % 24.5 %; Mean Corpuscular HGB Conc 30.7 g/dL (30.0-36.0); Mean Corpuscular Hemoglobin 26.4 pg (28.0-34.0); Mean Corpuscular Volume 86.1 fl (80-94); Mean Platelet Volume 11.8 fL (7.4-10.4); Monocytes # 0.4 10^3/uL (0.2-0.9); Monocytes % 9.1 %; Neutrophils # 2.98 10^3/uL (1.8-7.7); Neutrophils % 62.9 %; Nucleated Red Blood Cells % 0 %; Platelet Count 60 10^3/cmm (130-400); Red Blood Count 4.66 10^6/uL (4.1-5.3); Red Cell Distribution Width 17.4 % (12.1-15.1); White Blood Count 4.7 10^3/uL (4.0-10.0)
[2021-08-28 06:07] LABS: Glucose Point of Care 238 mg/dL (70-110)
[2021-08-28 06:26] LABS: Albumin Level 2.9 g/dL (3.5-5.2); Alkaline Phosphatase 153 IU/L (40-130); Blood Urea Nitrogen 10 mg/dL (6-20); Calcium 7.9 mg/dL (8.5-10.5); Carbon Dioxide 22 mmol/L (22-29); Chloride 105 mmol/L (98-107); Globulin 1.8 g/dL (1.3-4.6); Glucose 231 mg/dL (65-115); Osmolality Calculated 298 mOsm/kg (285-295); Sodium 141 mmol/L (136-145); Total Bilirubin 0.6 mg/dL (0.15-1.2); Total Protein 4.7 g/dL (6.6-8.7)
[2021-08-28 06:28] LABS: Anion Gap 17.8 (5-19); Potassium 3.8 mmol/L (3.5-5.1)
[2021-08-28 06:29] LABS: Alanine Aminotransferase 67 U/L (0-41); Aspartate Amino Transferase 30 U/L (0-40)
[2021-08-28 08:00] VITALS: BP 120/77; PULSE 70; RESP 15; TEMP 36.4; O2SAT 99
[2021-08-28] MEDS: insulin lispro 100 unit/1 mL SUBCUT ×4 (09:40→22:00)
[2021-08-28] MEDS: predniSONE 10 mg Tablet 55 MG PO (09:40)
[2021-08-28] MEDS: fluconazole 100 mg Tablet PO (09:40)
[2021-08-28] MEDS: sulfamethoxazole-trimeth DS 160-800 mg Tablet 1 TAB PO (09:40)
[2021-08-28] MEDS: famotidine 20 mg Tablet PO (09:40)
[2021-08-28] MEDS: FUROsemide 10 mg/mL SDV 4mL 40 MG IVP (09:40)
[2021-08-28] MEDS: pantoprazole DR 40 mg Tablet PO (09:41)
[2021-08-28] MEDS: clotrimazole 1% cream 30 gm 1 APPLIC TOPICAL (09:41)
[2021-08-28 11:38] LABS: Glucose Point of Care 320 mg/dL (70-110)
[2021-08-28 12:00] VITALS: BP 121/78; PULSE 90; RESP 16; TEMP 36.7; O2SAT 97
--- NOTE | 2021-08-28 13:09 | P.PN_ITS ---
Subjective Subjective: Interval history: Physically he is improving. He has been getting up, and today even walked independently at short distance Swelling and redness has been subsiding in his legs. Persistent bruising. He has been feeling depressed, however, today he is tearful. Has been ov erwhelmed. Could not reach his mother and grandmother by phone. They visited him yesterday. Denies previously seeing anybody for depression. Denies suicidal ideation or thoughts of self-harm. Agreeable to speak with psychiatry. Vitals/I&O/Wt Last Vital Signs Temp 98.1 F 08/28/21 12:00 Pulse 90 08/28/21 12:00 Resp 16 08/28/21 12:00 BP 121/78 08/28/21 12:00 Pulse Ox 97 08/28/21 12:00 08/27/21 08/28/21 08/28/21 22:59 06:59 14:59 Intake Total 300 / 710 50 / 760 1200 / 1200 Output Total 850 / 2700 900 / 3600 3400 / 3400 Balance -550 / -1990 -850 / -2840 -2200 / -2200 Weight last 48 hrs Weight 117.662 kg Physical Exam Const: COMMON NORMALS: no acute distress and patient oriented x3 GENERAL APPEARANCE: cooperative NUTRITIONAL APPEARANCE: obese ORIENTATION/CONSCIOUSNESS: Yes awake HENMT: COMMON NORMALS: oropharynx normal Neck/C-Spine: COMMON NORMALS: no JVD Resp: COMMON NORMALS: normal respiratory effort and clear to auscultation bilaterally AUSCULTATION: clear to auscultation bilaterally Cardio: COMMON NORMALS: no JVD, regular rhythm, S1 normal heart sound present, S2 normal heart sound present and No murmurs present (Cardio) RHYTHM: regular rhythm HEART SOUNDS: S1 normal heart sound present and S2 normal heart sound present GI: COMMON NORMALS: Normal to inspection, nondistended, normoactive bowel sounds present, Soft to palpation and non-tender PALPATION: Yes Soft to palpation Extremity: COMMON NORMALS: no joint enlargement GENERAL: Yes edema (2-3+ BL LE, ) Neuro: COMMON NORMALS: patient oriented x3 and moves all extremities Skin: GENERAL SKIN EXAM: ecchymosis and erythema (Improving diffuse erythema BL LE. Persistent red discol some areas, ecchym) LESIONS: other (Excor w eschar above R ankle. Ulceration with small necr eschar L calf.) Data : 08/28/21 05:45 08/28/21 05:45 A&P Assessment and plan (1) Weakness: Improving. Improving functional capacity. Tells me he walked a short distance independently today. Discussed with him and his grandmother tentatively could try planning to return home tomorrow if continues to improve. Continue diuresis. Continue treatment of cellulitis. Cellulitis is improving. Lower extremity edema is improving. Continue with medications. Will need medications to take home. Discussed with her mother will need close follow-up with primary provider for reassessment. As soon as he is able to with discharge coming through will need to follow-up with referrals given to him by [place]. Continue diuresis. Resumed on prednisone. Continue. Bactrim. Continue treatm ent of cellulitis. Continue mobilization with PT, OT. Disposition planning. TTE with normal ejection fraction, normal diastolic function. Liver cirrhosis noted on right upper quadrant ultrasound. Status: Acute (2) Thrombocytopenia: Lovenox held. Thrombocytopenia slightly better today completely subcu 60,000. Hold Lovenox. Lab studies not suggestive of active hemolysis. At [facility] reported persistent/recurrent thrombocytopenia during admission secondary to cirrhosis. Required multiple platelet transfusions. Monitor platelet levels. 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 Status: Acute (4) Edema of both lower legs: Additional diuresis. Fluid overload. Possible congestive heart failure with myocardial involvement secondary to sarcoidosis. Follow-up TTE. Follow-up [facility] records. No DVT. 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 Au. Will need follow-up. Status: Acute (6) Cellulitis: Continue treatment with Zosyn for possible cellulitis. Status: Acute (7) Intertrigo: Clotrimazole. Status: Acute (8) Diabetes mellitus: He was referred for follow-up with endocrinology for diabetes and due to panhypopituitarism. Status: Acute (9) Sarcoidosis: Resumed on prednisone. Continue. Was supposed to be on prednisone taper, most recently called into the [facility] pharmacy from [facility]. Prednisone 10 mg 5.5 tab x 10 days 5 tab x28 days 4.5 tab x28 days 4 tabs x28 days He also had methotrexate 2.5 mg, 4 tab weekly called him, alongside folic acid 1 mg daily to start after insurance has come through and needed laboratory testing had been confirmed. He had not followed up with rheumatology and ophthalmology which were recommended by [facility]. Dr. Harper, [facility] rheumatology Left middle finger fracture, status post biopsy: He followed up with orthopedics, his fracture was reported have healed well, mother reports they were told no malignancy identified. Status: Acute (10) Declining functional status: Improving with improvement in edema, cellulitis and resumption of steroid. We had about a 30-minute conversation together with his grandmother and mother during separate phone calls. His mother had recently lost his cell phone and not can only access to phone through the grandmother. They have had difficult time caring for him recently. He had run out of his medications on Wednesday, they could not steel pickler the refills that were called into the pharmacy due to lack of insurance and money. They were not able to follow-up with it appears any of the specialist apart from a orthopedics after the discharge. Here he is required significant assistance to get up to the chair. Mother says he got discouraged. Encouraged him today to participate with therapy. We are restarting his medications as well. Case management is looking into his insurance application. Disposition planning. 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 Status: Acute Additional A&P Information 26M with multiple comorbidities as above presenting with worsening LE edema, increasing generalized swelling, inability to walk, possible cellulitis Depression versus adjustment disorder: Appreciate psychiatry consultation for additional assessment of depression. Hopefully will be able to continue follow- up after discharge. H/o sarcoidosis, h/o LANDSCAPE LABORER shunt- unclear details leading up to diagnosis- request records Obesity He was referred to operations supervisor 2nd shift due to constellation of medical problems, although has not followed up. Discussed with him regarding documentation from [facility], recommended medications, as well as recommended follow-up. He states he recalls all regarding the recommendations, he intends to seek follow-up. Attestations Medical Necessity Statement*: Continue admission for assessment management of declining functional status, fluid overload, cellulitis, and gentleman who has not been able to afford medications including steroids for his sarcoidosis, or follow-up with specialist with regards to sarcoidosis, liver cirrhosis, pa nhypopituitarism, recent LANDSCAPE LABORER shunt placement, and other comorbidities. Disposition planning and arrangements with possible discharge home tomorrow. 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
[2021-08-28 16:00] VITALS: BP 149/82; PULSE 73; RESP 16; TEMP 36.6; O2SAT 100
[2021-08-28 17:37] LABS: Glucose Point of Care 487 mg/dL (70-110)
[2021-08-28 20:00] VITALS: BP 123/76; PULSE 68; RESP 16; TEMP 36.6; O2SAT 91
[2021-08-28 21:30] LABS: Glucose Point of Care 315 mg/dL (70-110)
[2021-08-29] VITALS: BP 126/65; PULSE 72; RESP 16; TEMP 36.6; O2SAT 98
[2021-08-29 04:00] VITALS: BP 130/68; PULSE 74; RESP 16; TEMP 36.6; O2SAT 99
[2021-08-29 05:06] LABS: Basophils % 0.4 %; Hematocrit 35.8 % (42.0-52.0); Hemoglobin 11.1 g/dL (11.7-16.6); Lymphocytes # 1.6 10^3/uL (0.8-4.8); Lymphocytes % 33.4 %; Mean Corpuscular Hemoglobin 26.3 pg (28.0-34.0); Mean Corpuscular Volume 84.8 fl (80-94); Mean Platelet Volume 10.7 fL (7.4-10.4); Monocytes # 0.4 10^3/uL (0.2-0.9); Monocytes % 8.4 %; Neutrophils # 2.62 10^3/uL (1.8-7.7); Neutrophils % 53.3 %; Nucleated Red Blood Cells % 0 %; Platelet Count 83 10^3/cmm (130-400); Red Blood Count 4.22 10^6/uL (4.1-5.3); Red Cell Distribution Width 17.4 % (12.1-15.1); White Blood Count 4.9 10^3/uL (4.0-10.0)
[2021-08-29] MEDS: piperacillin-tazobactam 3.375 GM in sodium chloride 0.9% (plus) 50 ML IV (05:09)
[2021-08-29 05:33] LABS: Alanine Aminotransferase 69 U/L (0-41); Albumin Level 2.9 g/dL (3.5-5.2); Alkaline Phosphatase 168 IU/L (40-130); Anion Gap 14.1 (5-19); Aspartate Amino Transferase 29 U/L (0-40); Blood Urea Nitrogen 12 mg/dL (6-20); Calcium 8.2 mg/dL (8.5-10.5); Carbon Dioxide 24 mmol/L (22-29); Chloride 105 mmol/L (98-107); Globulin 2.2 g/dL (1.3-4.6); Glucose 120 mg/dL (65-115); Osmolality Calculated 291 mOsm/kg (285-295); Potassium 3.1 mmol/L (3.5-5.1); Sodium 140 mmol/L (136-145); Total Bilirubin 0.5 mg/dL (0.15-1.2); Total Protein 5.1 g/dL (6.6-8.7)
[2021-08-29 06:44] LABS: Glucose Point of Care 129 mg/dL (70-110)
[2021-08-29 07:50] VITALS: BP 129/82; PULSE 65; RESP 17; TEMP 36.4; O2SAT 98
[2021-08-29] MEDS: potassium chloride ER 20 mEq Tablet 40 MEQ PO (08:43)
[2021-08-29] MEDS: predniSONE 10 mg Tablet 55 MG PO (08:43)
[2021-08-29] MEDS: sulfamethoxazole-trimeth DS 160-800 mg Tablet 1 TAB PO (08:44)
[2021-08-29] MEDS: fluconazole 100 mg Tablet PO (08:44)
[2021-08-29] MEDS: pantoprazole DR 40 mg Tablet PO (08:44)
[2021-08-29] MEDS: famotidine 20 mg Tablet PO (08:44)
[2021-08-29] MEDS: FUROsemide 10 mg/mL SDV 4mL 40 MG IVP (09:01)
--- NOTE | 2021-08-29 10:15 | PC.PT ---
Attempted to see pt and he refused due to getting ready to go home. Spoke with Nurse and she reported that his Dr has been around this mornig and just waiting on discharge paperwork.
[2021-08-29 11:34] VITALS: BP 116/66; PULSE 64; RESP 16; TEMP 36.4; O2SAT 98
--- NOTE | 2021-08-29 11:34 | P.NPUCON_ITS ---
Providers/Reason for Consult Consulting Physican/Specialty*: Ronal Harrell MD/Psychiatist Reason for Consult*: Depression Attending Physician: Juan Salas Psych Consult HPI History of Present Illness Rick York is a 26 year old male with multiple medical problems who has been depressed recently. He says that he has been depressed the last couple months because the refrigerator broke. His mother has stopped working to take care of him. He has disability income but it is limited. He feels guilty that they are having financial problems and cannot afford a refrigerator. He says that he has been living off canned fruit for the last 2 months. He reports low mood, low self-esteem, increased guilt, low motivation but says that his appetite and sleep are good. He denies any thoughts that he would be better off . He says that he does not have Medicare or Medicaid and does not know on their status. He says that he has not had Social Security disability for a very long but does not know exactly how long. He thought that maybe he only had 50% disability and that is why he does not have Medicare. He does not want to take an antidepressant. He says that he already takes too many pills. He agreed to reconsider that if the depression continues. He was encouraged to get psychotherapy. Meds Current Medications: Current Medications Generic Name Dose Route Start Last Admin Trade Name Alannah PRN Reason Stop Dose Admin Clotrimazole 1 applic 08/25/21 09:00 08/28/21 18:12 Clotrimazole 1% Cream 30 Gm TOPICAL Not Given BID JAMES Enoxaparin Sodium 40 mg 08/25/21 06:00 08/27/21 05:39 Enoxaparin 40 Mg /0.4 Ml Syringe SUBCUT 40 mg Q24H JAMES Administration Famotidine 20 mg 08/27/21 09:00 08/29/21 08:44 Famotidine 20 Mg Tablet PO 20 mg DAILY JAMES Administration Fluconazole 100 mg 08/25/21 09:00 08/29/21 08:44 Fluconazole 100 Mg Tablet PO 09/04/21 08:59 100 mg DAILY JAMES Administration Furosemide 40 mg 08/26/21 16:05 08/29/21 09:01 Furosemide 10 Mg /Ml Sdv 4ml IVP 40 mg DAILY JAMES Administration Piperacillin Sod/T azobactam 50 mls @ 12.5 mls /hr 08/25/21 02:00 08/29/21 09:21 Sod 3.375 gm/ So dium Chloride IV Infused Q8H JAMES Infusion Protocol As Directed Insulin Human Lisp ro 0 unit 08/25/21 08:00 08/29/21 08:32 Insulin Lispro 1 00 Unit/1 Ml SUBCUT Not Given WM&BEDTIME JAMES Protocol Pantoprazole Sodiu m 40 mg 08/25/21 09:00 08/29/21 08:[address] 40 Mg Tablet PO 40 mg DAILY JAMES Administration Prednisone 55 mg 08/26/21 17:20 08/29/21 08:43 Prednisone 10 Mg Tablet PO 55 mg DAILY JAMES Administration Trimethoprim/Sulfa methoxazole 1 tab 08/27/21 09:00 08/29/21 08:44 Sulfamethoxazole -Trimeth Ds 160-80 0 Mg Tablet PO 1 tab DAILY JAMES Administration Protocol PFSH NPU PFSH: Medical History (Updated 08/29/21 @ 11:39 by Ronla Harrell MD) 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 He was pleasant and cooperative with the interview. psychomotor activity is normal. Speech is at a regular rate and rhythm, normal volume, good articulation, not pressured. Alert, oriented X3 Attention and concentration seems normal. Memory is intact Mood is depressed. Affect is mildly dysphoric. Thought process is logical and goal-directed. Thought content: Denies auditory and visual hallucinations. No delusions or paranoia are noted. No current suicidal ideation, and no homicidal ideation. Fund of knowledge is appears to be average. Insight and judgment appear to be good. Impulse control is good. Vitals/I&O/Wt Last Vital Signs Temp 97.6 F 08/29/21 07:50 Pulse 65 08/29/21 07:50 Resp 17 08/29/21 07:50 BP 129/82 08/29/21 07:50 Pulse Ox 98 08/29/21 07:50 08/28/21 08/29/21 08/29/21 22:59 06:59 14:59 Intake Total 2305.625 / 3555.625 0 / 3555.625 410 / 410 Output Total 1925 / 5325 375 / 5700 2400 / 2400 Balance 380.625 / -1769.375 - / -2144.375 -1989 / A&P Assessment and plan (1) Major depressive disorder, single episode, moderate: Status: Acute Additional A&P Information This is a 26-year-old male with multiple medical problems who reports a single episode of depression. He might benefit from an antidepressant. He does not want an antidepressant at this time. He was encouraged to consider it especially if it went on longer. If an antidepressant was needed I would recommend starting with Lexapro 10 mg since that has fewer interactions with other medications. He would certainly benefit from therapy. Attestations NPU Medical Necessity Statement*: Inpatient hospitalization is medically necessary and the clinically appropriate intervention at this time. We will initiate medications and make changes as indicated. Coding Level of Care Code Acute Claim Technician for Arturo Magana Diagnoses Major depressive disorder, single episode, moderate F32.1
[2021-08-29 11:57] LABS: Glucose Point of Care 353 mg/dL (70-110)
--- NOTE | 2021-08-29 12:08 | PM.DCS ---
Discharge Providers Date of Admission: 08/24/21 22:24 Date of Discharge: August 29, 2021 Attending Provider at Admission: Radha Machuca MD Attending Provider at Discharge: Juan Salas Diagnoses at Discharge Discharge Diagnosis (1) Major depressive disorder, single episode, moderate: Status: Acute Reason for Visit Reason for Visit: WEAKNESS Hospital Course Hospital Course 26-year-old gentleman with recent admission to [facility] where he had been diagnosed with sarcoidosis, required placement of DRY [employer] INSPECTOR shunt, additionally assessed by endocrinology for panhypopituitarism, diabetes, orthopedics due to middle left finger fracture which was biopsied due to concern for a mass, which per report by family on revisit returned benign, also with liver cirrhosis due to [place], with associated thrombocytopenia, required multiple platelet transfusions at [facility], on discharge was referred for follow-up with multiple specialists including rheumatology and ophthalmology for sarcoidosis, was set up with prednisone taper, recently also had methotrexate and folic acid called in to start once he obtains insurance (Medicaid), and he is reevaluated by specialist with required labs, also neurosurgery for reassessment after DRY [employer] INSPECTOR shunt, hepatology for reassessment of liver cirrhosis, and to set up EGD, endocrinology for panhypopituitarism and diabetes, has followed up with orthopedics, as well as genetics to assess for possible genetic disorder contributing to multiple comorbidities. Please see full documentation from [facility] for details. He described history of persistent lower extremity edema. Worsened after returning home to the point legs felt too heavy for him to be able to walk. Ambulating up to about the week prior to admission. Generally weak. Weeping edema and erythema of lower extremities noted on examination. Several scratches where he was scratched by his dog. Healing wound after biopsy on right forearm. Bilateral elbows with contusions and abrasions, stating he got them when he punched himself being frustrated during a video game. Bilateral groin and buttocks with intertrigo. 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 Treated in the hospital with Zosyn for lower extremity cellulitis with abrasions. Received treatment with Lasix due to fluid overload and lower extremity edema. Instructed on maintaining low-sodium diet and avoiding fluid overload. Edema and cellulitis quite significantly improved. Platelet levels fluctuating, with noted bruising on lower extremities which she states sustained during falling at home. Other than bruising erythema significantly improved. Edema is coming down, he has been working with physical therapy, and has been able to move around independently much better. He was resumed on prednisone, empiric Bactrim, prescriptions are given to him on discharge. He will complete course for cellulitis with ciprofloxacin. Lasix as needed for edema. Fluconazole, clotrimazole for intertrigo. Prescriptions also given for Metformin, Januvia for diabetes. During hospitalization also assessed by psychiatry given depression which has not been previously assessed. Please reassess in office. Would benefit from therapy. Might benefit also from medication, although declined at this time. Please revisit with him. He is asked to also follow-up with [facility]. Lower extremity venous duplex was negative for DVT. Also assessed by echocardiogram with finding of normal ejection fraction, normal diastolic function. No significant valvular heart disease. No comparison studies. Liver ultrasound with technically difficult study, changes consistent with cirrhosis in the liver, no bile duct dilation. Nonvisualization of gallbladder. 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 Chest x-ray was nonacute. Please follow-up with him on resolution of cellulitis, improvement in his condition. Please assist him with further medication refills. Please assist him with coordinating follow-up with all the required subspecialists as requested by [facility] presents please see instructions below and see Mishager's documentation for full details). Please follow-up with to assist him with pending health insurance if any additional assistance is required. Physical Exam Narrative: EXAM NARRATIVE: Sitting up in bed. Reports he is feeling much better. Finished his breakfast. Const: COMMON NORMALS: no acute distress and patient oriented x3 GENERAL APPEARANCE: cooperative NUTRITIONAL APPEARANCE: obese ORIENTATION/CONSCIOUSNESS: Yes awake HENMT: COMMON NORMALS: oropharynx normal Neck/C-Spine: COMMON NORMALS: no JVD Resp: COMMON NORMALS: normal respiratory effort and clear to auscultation bilaterally AUSCULTATION: clear to auscultation bilaterally Cardio: COMMON NORMALS: no JVD, regular rhythm, S1 normal heart sound present, S2 normal heart sound present and No murmurs present (Cardio) RHYTHM: regular rhythm HEART SOUNDS: S1 normal heart sound present and S2 normal heart sound present GI: COMMON NORMALS: Normal to inspection, nondistended, normoactive bowel sounds present, Soft to palpation and non-tender PALPATION: Yes Soft to palpation Extremity: COMMON NORMALS: no joint enlargement GENERAL: Yes edema (2+ BL LE, much better, wrinkling, no weeping) Neuro: COMMON NORMALS: patient oriented x3 and moves all extremities Skin: GENERAL SKIN EXAM: ecchymosis and erythema (Much better eryth BL LE. Persistent red discol some areas, ecchym) LESIONS: other (Excor w eschar above R ankle. Ulceration with small necr eschar L calf.) Discharge Data Data Completed and Pending: Completed Studies During Hospitalization Category Date Time Status CT head wo con* 7 [id number] Urgent Cat Scan 08/24/21 20:18 Completed XR chest 1V lilian ble [id number] Urgent Exams 08/24/21 20:18 [place] [id number] Urgent Ultrasound 08/24/21 22:04 Completed CV. echo complete * [id number] Routine Ultrasound 08/26/21 06:00 Completed US liver [id number] Ro utine Ultrasound 08/26/21 06:00 Completed Pending at discharge Category Date Time Status Blood Culture Rou tere Lab 08/25/21 07:41 Results Complete Blood Co unt w/Auto AM LABS Lab 08/30/21 04:00 Ordered Complete Blood Co unt w/Auto AM LABS Lab 08/31/21 04:00 Ordered Comprehensive Met abolic Panel AM LA BS Lab 08/30/21 04:00 Ordered Comprehensive Met abolic Panel AM LA BS Lab 08/31/21 04:00 Ordered Labs from last 24 hours 08/29/21 08/29/21 08/29/21 11:39 06:42 04:42 WBC RBC Hgb Hct MCV MCH MCHC RDW Plt Count MPV Neut % (Auto) Lymph % (Auto) Mora % (Auto) Eos % (Auto) Baso % (Auto) Neut # (Auto) Lymph # (Auto) Mora # (Auto) Eos # (Auto) Baso # (Auto) Nucleated RBC % (a uto) Nucleated RBCs # Sodium 140 Potassium 3.1 L Chloride 105 Carbon Dioxide 24 Anion Gap 14.1 BUN 12 Creatinine 0.5 L GFR Calculation 201.0 H Glucose 120 H POC Glucose 353 H 129 H Calculated Osmolal ity 291 Calcium 8.2 L Total Bilirubin 0.5 AST 29 ALT 69 H Alkaline Phosphata se 168 H Total Protein 5.1 L Albumin 2.9 L Globulin 2.2 08/29/21 08/28/21 08/28/21 04:42 21:29 17:33 WBC 4.9 RBC 4.22 Hgb 11.1 L Hct 35.8 L MCV 84.8 MCH 26.3 L MCHC 31.0 RDW 17.4 H Plt Count 83 L D MPV 10.7 H Neut % (Auto) 53.3 Lymph % (Auto) 33.4 Mora % (Auto) 8.4 Eos % (Auto) 0.0 Baso % (Auto) 0.4 Neut # (Auto) 2.62 Lymph # (Auto) 1.6 Mora # (Auto) 0.4 Eos # (Auto) 0.0 Baso # (Auto) 0.0 Nucleated RBC % (a uto) 0 Nucleated RBCs # 0.0 Sodium Potassium Chloride Carbon Dioxide Anion Gap BUN Creatinine GFR Calculation Glucose POC Glucose 315 H 487 H Calculated Osmolal ity Calcium Total Bilirubin AST ALT Alkaline Phosphata se Total Protein Albumin Globulin Vitals: Last Vital Signs Temp 97.6 F 08/29/21 11:34 Pulse 64 08/29/21 11:34 Resp 16 08/29/21 11:34 BP 116/66 08/29/21 11:34 Pulse Ox 98 08/29/21 11:34 Discharge Plan Discharge Patient Disposition: Home Condition: Stable Prescriptions: New clotrimazole 1 % Cream 1 applic topical BID 14 Days Qty: 45 RF: 2 fluconazole 100 mg Tablet 100 mg PO DAILY 6 Days Qty: 6 RF: 0 furosemide 40 mg tablet 40 mg PO DAILY PRN (Reason: Edema) Qty: 60 RF: 0 prednisone 10 mg tablet See Rx Instructions .ROUTE .COMPLEX Qty: 433 RF: 0 ciprofloxacin HCl 500 mg tablet 500 mg PO BID 5 Days Qty: 10 RF: 0 Continued Zeasorb AF 2 % Powder 1 applic TOPICAL BID RF: 0 Vitamin D2 1,250 mcg (50,000 unit) Capsule 50,000 unit PO DIRECTED RF: 0 folic acid 1 mg Tablet 1 mg PO DAILY RF: 0 methotrexate sodium 2.5 mg Tablet 2.5 mg PO DIRECTED RF: 0 metformin 500 mg Tablet 500 mg PO BID Qty: 90 RF: 0 Bactrim DS 800-160 mg Tablet 1 tab PO DAILY Qty: 90 RF: 0 famotidine 20 mg Tablet 20 mg PO DAILY Qty: 90 RF: 0 Januvia 100 mg Tablet 100 mg PO DAILY Qty: 90 RF: 0 Discontinued sulfamethoxazole-trimethoprim 800-160 mg Tablet 1 tab PO DAILY RF: 0 prednisone 10 mg Tablet 10 mg PO DAILY RF: 0 Discharge Orders: Discharge Order (Routine); Ordered 08/29/21 Ordered By: Juan Salas Referrals: [facility] [Provider Group] - 1 week Mark Urena MD [Physician] - 09/04/21 8:30 am Discharge Diet: Diabetic and Low Salt Discharge Activity: Increase activity as tolerated and As per PT/OT instructions Patient Instructions: Ciprofloxacin (By mouth), Sulfamethoxazole/Trimethoprim (By mouth), Cirrhosis (GEN), Cellulitis (GEN), Sarcoidosis (GEN), Fall Prevention (GEN), Skin Yeast Infection (GEN), Opioid Safety Activity Restrictions/Additional Instructions: Please make sure to follow-up with your primary provider for reassessment of volume status, resolution of cellulitis. Please make sure to follow-up with the specialists as recommended by [facility] instructions, including rheumatology for sarcoidosis, ophthalmology for sarcoidosis, hepatology due to liver cirrhosis, and arrangements for EGD, neurosurgery for reassessment of [employer] INS[employer]OR shunt, endocrinology due to panhypopituitarism, diabetes, as well as chucker to assess for any inherited condition, and any other follow-up you are instructed on by [facility]. Discussed all these conditions with your primary doctor. Discussed with your primary doctor, perhaps some of this follow-up may be continued here, with rheumatology, ophthalmology, endocrinology, available locally. EGD can probably also be set up in town. Please work with your primary care provider. Please have your primary provider also follow-up your blood counts including your platelet levels, which have been running low, but are now improving. As per [facility] instructions, once your insurance is approved, laboratory work is complete, they would like you to proceed with methotrexate and folic acid. Avoid excessive salt consumption. Avoid overhydration. If your legs swell up significantly, take Lasix and contact your primary doctor. As swelling is decreasing in lower extremities, skin may become dry, wrinkly -apply moisturizer to avoid cracks in skin and infection. Please follow-up with your primary doctor also regarding depression, follow-up with behavioral health care. If you develop any thoughts of harming your self or ending her life, seek medical attention immediately. Please follow-up with behavioral health care to set up therapy for depression. Discuss with your primary doctor. The psychiatrist considers that you may also benefit from an antidepressant medication in addition to therapy to help with your symptoms. Please revisit again with your primary doctor and behavioral health care, especially if symptoms go on longer. Discharge Attestations Time Spent in Discharge Care*: greater than 30 min Quality Metrics Clinical Quality Measures During this hospital stay, did patient experience: None Coding Level of Care Code Acute [facility] [place] note Diagnoses Major depressive disorder, single episode, moderate F32.1
--- NOTE | 2021-08-29 12:58 | PC.CHAP ---
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 it instructor visit [] Patient/Family/Request visit [] Outpatient visit [xx] Follow-up visit [] Physician referral [] Code/Alert [] Routine visit [] Staff referral [] Actively dying [] Patient sleeping [] Family support [] [] Out of room [] Palliative care [] [xx] Receiving care in room [] Pre-surgical visit [] Trauma [xx] Long length of stay [] ICU visit [] Other: Relational/Emotional Strength [] Patient feels connected with others/family/visitors/staff [] Distress [] Loneliness/isolation [] Abandonment Spirituality of Patient [] Person of Danica [] Attends Mandaen of their Danica [] Believes in Prayer [] Reads Bible or Rastafari materials [] There are Spiritual issues to be addressed 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 Interventions [] Prayer [] Active listening [] Non-anxious presence [] Spiritual/emotional support [] Crisis/trauma care [] Spiritual counseling [] Bereavement support [] Provided bereavement packet [] Provided Bible/devotional materials [] Provided toy/stuffed animal, coloring book to patient or family member [] Provided Communion [] Anointing/[place] [] Salvation [] Completed spiritual assessment [] Other: Impact on Illness or Injury [] Angry [] Fearful [] Anxious [] Often cries [] Exhaustion [] Unable to work [] Unable to attend hoahaoism [] Unable to walk/stand [] Unable to read [] Unable to drive [] Unable to eat/drink [] Unable to sleep [] Unable to be with family [] Patient intubated [] Other: Summary Follow up later Time spent with patient
[2021-08-29] MEDS: insulin lispro 100 unit/1 mL SUBCUT (13:22)
[2021-08-29 13:39] VITALS: BP 116/66; PULSE 64; RESP 16; TEMP 36.4; O2SAT 98
== END 2021-08-29 13:40 | disposition home or self-care (01) | DRG 603 ==
LOC: ER 22:34 → MEDSURG 22:35
PROVIDERS: Admitting Provider Student in an Organized Health Care Education/Training Program; Emergency Provider Emergency Medicine; Visit Provider Internal Medicine
DX: L03.116 Cellulitis of left lower limb (principal); G91.9 Hydrocephalus, unspecified; F32.1 Major depressive disorder, single episode, moderate; E23.0 Hypopituitarism; L03.115 Cellulitis of right lower limb; K75.81 Nonalcoholic steatohepatitis (NASH); K74.60 Unspecified cirrhosis of liver; Z98.2 Presence of cerebrospinal fluid drainage device; D86.9 Sarcoidosis, unspecified; E11.65 Type 2 diabetes mellitus with hyperglycemia; L30.4 Erythema intertrigo; D69.59 Other secondary thrombocytopenia; F43.20 Adjustment disorder, unspecified; E66.9 Obesity, unspecified; Z68.36 Body mass index [BMI] 36.0-36.9, adult; Z79.84 Long term (current) use of oral hypoglycemic drugs
CPT/HCPCS: 36415; 36416; 70450; 71045; 76705; 80053; 80306; 80500; 81003; 82140; 82248; 82962; 83010; 83036; 83615; 83880; 84443; 85014; 85025; 85045; 85610; 86705; 86706; 86709; 86803; 87040; 87340; 87806; 93005; 93306; 93970; 93976; 96365; 96372; 96375; 97110; 97116; 97161; 97166; 97530; 97535; 99285; J1650; J1815; J1940; J2543; J3490; J7512

== ENCOUNTER → 2021-10-27 13:50 | Outpatient (BNVA) | payer MEDICAID, SELFPAY | PROVIDERS: Visit Provider Nurse Practitioner Family | DX: R04.0 Epistaxis (principal) | CPT/HCPCS: 85025 ==

== ENCOUNTER → 2021-11-24 15:00 | Outpatient (BNVA) | payer MEDICAID, SELFPAY | PROVIDERS: PCP Nurse Practitioner Family; Visit Provider Internal Medicine | DX: E23.0 Hypopituitarism (principal); K75.81 Nonalcoholic steatohepatitis (NASH); K74.60 Unspecified cirrhosis of liver; F32.1 Major depressive disorder, single episode, moderate; R53.81 Other malaise; D86.9 Sarcoidosis, unspecified | CPT/HCPCS: 80061; 82105; 83001; 83002; 83036; 84146; 84403; 84439; 84443; 85025 ==

== ENCOUNTER 2021-12-17 08:35 | Outpatient (CLI) | payer MEDICAID, SELFPAY ==
--- NOTE | 2021-12-17 09:15 | US_ITS ---
WS: [id number] ULTRASOUND ABDOMEN LIMITED CLINICAL INFORMATION: GUPTA COMPARISON: August 26, 2021 FINDINGS: Liver Size: Normal. Craniocaudal length: 13.9 cm. Echogenicity: Coarse Surface nodularity: Present Mass (size and location): None. Bile ducts Intrahepatic ducts: Normal. Common bile duct diameter: 0.4 cm. Gallbladder Normal. Gallstones: None. Gallbladder sludge: None. Gallbladder wall thickening: None. Pericholecystic fluid: None. Sonographic Perez sign: Absent. Pancreas Not well visualized Right kidney: Normal. Hydronephrosis: None. Size: 11.5 cm x 5.8 cm x 6.2 cm. Abdominal aorta and IVC Visualized portions are normal. Ascites: None. US/US liver [id number] IMPRESSION: 1. Coarse hepatic echotexture with cirrhotic configuration to the liver simila r to 2020 2. Normal gallbladder. No cholelithiasis. Normal common bile duct. 3. No hydronephrosis in RIGHT kidney. 4. No ascites.
== END 2021-12-17 08:36 | disposition home or self-care (01) ==
PROVIDERS: PCP Nurse Practitioner Family; Visit Provider Internal Medicine
DX: K75.81 Nonalcoholic steatohepatitis (NASH) (principal); K74.60 Unspecified cirrhosis of liver
CPT/HCPCS: 76705

== ENCOUNTER → 2022-02-24 07:08 | Outpatient (BNVA) | payer MEDICAID, SELFPAY | PROVIDERS: PCP Nurse Practitioner Family; Referring Provider Nurse Practitioner Family; Visit Provider Specialist | DX: D86.9 Sarcoidosis, unspecified (principal); E23.0 Hypopituitarism; G91.9 Hydrocephalus, unspecified; Z98.2 Presence of cerebrospinal fluid drainage device; H30.90 Unspecified chorioretinal inflammation, unspecified eye; K75.81 Nonalcoholic steatohepatitis (NASH); K74.60 Unspecified cirrhosis of liver; F32.1 Major depressive disorder, single episode, moderate; R53.81 Other malaise | CPT/HCPCS: 99204; 99205 ==

== ENCOUNTER → 2022-04-29 08:49 | Outpatient (BNVA) | payer MEDICAID, SELFPAY | PROVIDERS: PCP Nurse Practitioner Family; Visit Provider Nurse Practitioner Family | DX: E29.1 Testicular hypofunction (principal); D86.9 Sarcoidosis, unspecified; E11.620 Type 2 diabetes mellitus with diabetic dermatitis | CPT/HCPCS: 80053; 82040; 83036; 84270; 84403; 85025 ==